=== PATIENT | female | born 1960 | race Two or more races ===

== ENCOUNTER 2024-10-05 05:19 | Day surgery (SDC) | payer OTHER ==
[2024-10-01 10:25] VITALS: BMI 26.1
[2024-10-05] MEDS ORDERED: ONDANSETRON 4 MG/2 ML VIAL IVPUSH PRN (08:24)
[2024-10-05] MEDS ORDERED: LACTATED RINGERS SOLUTION 1,000 ML IV SCH (08:30)
[2024-10-05] MEDS ORDERED: SUCCINYLCHOLINE CHLORIDE 200 MG/10 ML SYRINGE ONE (11:14)
[2024-10-05] MEDS ORDERED: PROPOFOL 20 ML ONE (11:14)
[2024-10-05] MEDS ORDERED: ROCURONIUM BROMIDE 50 MG/5 ML SYRINGE ONE (11:14)
[2024-10-05] MEDS: ceFAZolin SODIUM 1 GM VIAL IVPB ONE ×2 (11:35)
[2024-10-05] MEDS ORDERED: LIDOCAINE HCL 2% JELLY 11 ML TP ONE (11:52)
[2024-10-05] MEDS: LIDOCAINE HCL 2% JELLY (5 ML/TUBE) TP ONE (11:52)
[2024-10-05] MEDS ORDERED: NEOSTIGMINE METHYLSULFATE 0.5 MG/1 ML - 10 ML MDV ONE (11:52)
[2024-10-05] MEDS ORDERED: oxyCODONE HCL 5 MG TABLET ONE (13:49)
[2024-10-05] MEDS: oxyCODONE HCL 5 MG TABLET PO PRN (13:55)
[2024-10-05] MEDS: KETOROLAC TROMETHAMINE 30 MG/1 ML VIAL IVPUSH ONE (15:06)
[2024-10-05 17:20] VITALS: BP 125/74; PULSE 78; RESP 20; TEMP 97.2
[2024-10-14 07:07] LABS: CA OXALATE MONOHYDR. 40 % (.); SIZE 2x1 mm (.); WEIGHT 4 mg (.)
== END 2024-10-05 16:55 | disposition home or self-care (01) ==
LOC: JASU-SURG 05:19
PROVIDERS: ATTEND Urology
PROC: 0TC78ZZ Extirpation of Matter from Left Ureter, Via Natural or Artificial Opening Endoscopic (ICD-10-PCS; principal; 2024-10-05 10:00)
PROC: 0T778DZ Dilation of Left Ureter with Intraluminal Device, Via Natural or Artificial Opening Endoscopic (ICD-10-PCS; 2024-10-05 10:00)
DX: N13.2 Hydronephrosis with renal and ureteral calculous obstruction (principal)
CPT/HCPCS: 36415; 76000-TC-FY; 82360; 88300-TC; 94760; C1758